=== PATIENT | female | born 1995 ===

== ENCOUNTER 2017-05-04 16:47 | Outpatient (CLI) | payer OTHER ==
[2017-05-05 18:58] LABS: HIV (1/2) Antibody/Antigen Non-Reactive (NonReactive); HIV 1/2 INDEX 0.09 S/CO (<1.00)
== END 2017-05-04 16:48 | disposition home or self-care (01) ==
LOC: HPCALD 16:47
PROVIDERS: ATTEND Physician Assistant
DX: Z72.51 High risk heterosexual behavior (principal)
CPT/HCPCS: 36415; 86592; 87389; 87480; 87491; 87510; 87591; 87660